=== PATIENT | male | born 1935 | race Caucasian/White ===

== ENCOUNTER → 2024-01-06 09:47 | Outpatient (REF) | payer MEDICARE, OTHER, SELFPAY ==
[2024-01-06 10:32] LABS: % Basophils 0.9 % (0-2); % Immature Granulocytes 0.4 % (0-0.5); % Lymphocytes 36.9 % (20.5-51.1); % Monocytes 8.5 % (1.7-9.3); % Neutrophils 48.3 % (42.2-75.2); Absolute Basophils 0.1 10^3/uL (0-0.2); Absolute Eosinophils 0.4 10^3/uL (0-0.7); Absolute Lymphocytes 2.8 10^3/uL (1.2-3.4); Absolute Monocytes 0.6 10^3/uL (0.1-0.6); Absolute Neutrophils 3.6 10^3/uL (1.4-6.5); Hematocrit 39.2 % (39.0-52.0); Hemoglobin 13.2 g/dL (13.0-18.0); Mean Corp Hgb Conc. 33.7 g/dL (33.0-37.0); Mean Corpuscular Hgb 31.5 pg (27.0-31.0); Mean Corpuscular Volume 93.6 fL (80.0-94.0); Mean Platelet Volume 10.3 fL (7.4-10.4); Nucleated Red Blood Cells % 0 % (-); Platelet Count 168 10^3/uL (130-400); Red Blood Cell Count 4.19 10^6/uL (4.70-6.10); Red Cell Dist. Width 14.2 % (11.5-14.5); White Blood Cell Count 7.5 10^3/uL (4.8-10.8)
[2024-01-06 10:44] LABS: ALT (SGPT) 20 U/L (0-50); AST (SGOT) 28 U/L (17-59); Albumin 4.3 g/dl (3.5-5.0); Alkaline Phosphatase 52 U/L (38-126); Blood Urea Nitrogen 31 mg/dl (9-20); Calcium 9.6 mg/dl (8.4-10.2); Carbon Dioxide 31 mmol/L (22-30); Chloride 103 mmol/L (98-107); Glucose 100 mg/dl (70-99); HDL Cholesterol 42 mg/dl; LDL Cholesterol, Calculated 69 mg/dl; Potassium 4.1 mmol/L (3.5-5.1); Sodium 140 mmol/L (135-145); Total Bilirubin 1.1 mg/dl (0.2-1.3); Total Cholesterol 130 mg/dl (50-199); Total Protein 7.2 g/dl (6.3-8.2); Triglyceride 98 mg/dl (10-149); Very Low Density Lipoprotein 19 mg/dl (0-30); eGFR 58.89
[2024-01-06 11:06] LABS: Erythrocyte Sed Rate 18 mm/hour (0-20)
== END ==
LOC: REG 09:47
PROVIDERS: ATTENDING PHYSICIAN Internal Medicine
DX: I10 Essential (primary) hypertension (principal); E78.5 Hyperlipidemia, unspecified; M54.14 Radiculopathy, thoracic region; I48.20 Chronic atrial fibrillation, unspecified; Z00.01 Encounter for general adult medical examination with abnormal findings; Z68.36 Body mass index [BMI] 36.0-36.9, adult
CPT/HCPCS: 36415; 80053; 80061; 85025; 85652

== ENCOUNTER → 2024-01-27 09:57 | Outpatient (REF) | payer MEDICARE, OTHER, SELFPAY ==
[2024-01-27 10:56] LABS: Urine Albumin Trace (Neg - Trace); Urine Bilirubin Negative (Negative); Urine Character Clear (Clear); Urine Color Yellow; Urine Glucose Negative (Negative); Urine Ketone Negative (Negative); Urine Leukocyte Negative (Negative); Urine Nitrite Negative (Negative); Urine Occult Blood Negative (Negative); Urine Urobilinogen Negative (Neg - 1+)
== END ==
LOC: REG 09:57
PROVIDERS: ATTENDING PHYSICIAN Internal Medicine
DX: I10 Essential (primary) hypertension (principal); I48.91 Unspecified atrial fibrillation; R35.1 Nocturia
CPT/HCPCS: 36415; 81003; 83735

== ENCOUNTER → 2024-02-23 14:28 | Outpatient (REF) | payer MEDICARE, OTHER, SELFPAY ==
[2024-02-23 15:51] LABS: Albumin 4.1 g/dl (3.5-5.0); Blood Urea Nitrogen 21 mg/dl (9-20); Calcium 9.5 mg/dl (8.4-10.2); Carbon Dioxide 32 mmol/L (22-30); Chloride 99 mmol/L (98-107); Glucose 91 mg/dl (70-99); Phosphorus 3.8 mg/dl (2.5-4.5); Potassium 3.2 mmol/L (3.5-5.1); Sodium 140 mmol/L (135-145); eGFR > 60.00
== END ==
LOC: REG 14:28
PROVIDERS: ATTENDING PHYSICIAN Internal Medicine Cardiovascular Disease; FAMILY PHYSICIAN Internal Medicine
DX: I10 Essential (primary) hypertension (principal)
CPT/HCPCS: 36415; 80069

== ENCOUNTER → 2024-03-14 10:26 | Outpatient (REF) | payer MEDICARE, OTHER, SELFPAY ==
[2024-03-14 11:55] LABS: Albumin 3.8 g/dl (3.5-5.0); Blood Urea Nitrogen 24 mg/dl (9-20); Calcium 9.4 mg/dl (8.4-10.2); Carbon Dioxide 28 mmol/L (22-30); Chloride 104 mmol/L (98-107); Glucose 104 mg/dl (70-99); Phosphorus 3.1 mg/dl (2.5-4.5); Potassium 3.7 mmol/L (3.5-5.1); Sodium 140 mmol/L (135-145); eGFR 58.89
== END ==
LOC: REG 10:26
PROVIDERS: ATTENDING PHYSICIAN Internal Medicine Cardiovascular Disease; FAMILY PHYSICIAN Internal Medicine
DX: I48.91 Unspecified atrial fibrillation (principal)
CPT/HCPCS: 36415; 80069

== ENCOUNTER → 2024-10-17 12:11 | Outpatient (REF) | payer MEDICARE, OTHER, SELFPAY ==
[2024-10-17 13:53] LABS: % Basophils 0.8 % (0-2); % Eosinophils 3.9 % (0-6); % Immature Granulocytes 0.3 % (0-0.5); % Lymphocytes 23.1 % (20.5-51.1); % Monocytes 11.7 % (1.7-9.3); % Neutrophils 60.2 % (42.2-75.2); Absolute Basophils 0.1 10^3/uL (0-0.2); Absolute Eosinophils 0.3 10^3/uL (0-0.7); Absolute Lymphocytes 1.5 10^3/uL (1.2-3.4); Absolute Monocytes 0.8 10^3/uL (0.1-0.6); Absolute Neutrophils 3.9 10^3/uL (1.4-6.5); Hematocrit 36.5 % (39.0-52.0); Hemoglobin 12.4 g/dL (13.0-18.0); Mean Corpuscular Hgb 31.4 pg (27.0-31.0); Mean Corpuscular Volume 92.4 fL (80.0-94.0); Mean Platelet Volume 10.2 fL (7.4-10.4); Nucleated Red Blood Cells % 0 % (-); Platelet Count 169 10^3/uL (130-400); Red Blood Cell Count 3.95 10^6/uL (4.70-6.10); White Blood Cell Count 6.5 10^3/uL (4.8-10.8)
[2024-10-17 15:52] LABS: ALT (SGPT) 21 U/L (0-50); AST (SGOT) 29 U/L (17-59); Albumin 4.3 g/dl (3.5-5.0); Alkaline Phosphatase 53 U/L (38-126); Blood Urea Nitrogen 21 mg/dl (9-20); Calcium 9.3 mg/dl (8.4-10.2); Carbon Dioxide 29 mmol/L (22-30); Chloride 100 mmol/L (98-107); Glucose 84 mg/dl (70-99); HDL Cholesterol 41 mg/dl; LDL Cholesterol, Calculated 64 mg/dl; Potassium 3.5 mmol/L (3.5-5.1); Sodium 140 mmol/L (135-145); Total Bilirubin 0.7 mg/dl (0.2-1.3); Total Cholesterol 123 mg/dl (50-199); Total Protein 6.9 g/dl (6.3-8.2); Triglyceride 91 mg/dl (10-149); Very Low Density Lipoprotein 18 mg/dl (0-30); eGFR 58.53
[2024-10-17 16:11] LABS: Phosphorus 3.4 mg/dl (2.5-4.5)
== END ==
LOC: REG 12:11
PROVIDERS: ATTENDING PHYSICIAN Internal Medicine; FAMILY PHYSICIAN Internal Medicine Cardiovascular Disease
DX: Z00.01 Encounter for general adult medical examination with abnormal findings (principal); I10 Essential (primary) hypertension; E78.5 Hyperlipidemia, unspecified; E66.9 Obesity, unspecified; I48.91 Unspecified atrial fibrillation; E87.6 Hypokalemia
CPT/HCPCS: 36415; 80053; 80061; 84100; 85025

== ENCOUNTER 2025-01-06 14:52 | Emergency (ER) | payer MEDICARE, OTHER, SELFPAY ==
[2025-01-06 14:57] VITALS: BP 160/78
--- NOTE | 2025-01-06 16:19 | ED.GENMED ---
History of Present Illness
General
Chief Complaint: Fall
Source: patient and family
Time Seen by Provider: 01/06/25 15:59
History of Present Illness
History of Present Illness:
89-year-old male presents to the emergency room for evaluation at the advice of an urgent care. Patient had a fall yesterday while walking outside. He states he stubbed his toe causing him to fall forward. He attempted to break his fall but he
did strike his head on the asphalt. He denies loss of consciousness. He denies any significant headache though he has some tenderness to the forehead region. He developed a large hematoma after the fall. The bruising has traveled over the past
24 hours down to his face. He has swelling about both eyes. Patient denies any neck pain. He has some abrasions to his left hand but denies any other injuries. Patient does take Eliquis for A-fib.
Past History
Past History
ED Past Medical History: GERD, HTN, Hypercholesterolemia and Other (Diverticulosis, degenerative joint disease, Rectal bleeding)
ED Past Surgical History: Appendectomy, Orthopedic (Bilateral knee surgeries) and Other (Duodenal ulceration with surgery)
Social History
Tobacco: Non-smoker
Alcohol: Occasional
Personal:
Living: with family
Employment: Retired
Family History
Family History: Other (Uncontributory)
Phy Exam
Physical Exam
Physical Exam:
General: Awake, Alert, Oriented X3. No acute distress.
Vitals: unremarkable
Head: Left frontal hematoma with bilateral periorbital ecchymosis and swelling.
Eyes: Pupils equal, EOMI
Throat: Airway intact, no exudates
Neck: Trachea midline, no tenderness to palpation
Lungs: Clear and equal b/l
Heart: Regular rate, no murmurs
Abd: Soft, Nontender, No pulsatile mass
Neuro: Cranial nerves intact, muscle strength equal bilaterally
Skin: Warm, dry, no rash
Extremities: pulses equal b/l, no edema. Small abrasions to his finger
Course
Orders/Labs/Results
Orders:
Orders
01/06/25 14:54
CT Head W/o Iv Contrast Urgent
Comment:
Reason For Exam: fall, frontal head strike, on eliquis
01/06/25 14:55
Facial Bones wo Contrast CT [CT Facial Bones W/o Iv Contras] Urgent
Comment: swelling and bruising to bilateral eyes
Reason For Exam: fall, left eye brow head strike.
01/06/25 14:56
CT Cervical Spine W/o Iv Contr Urgent
Comment:
Reason For Exam: fall, facial trauma
Vital Signs
Initial and Last Documented VS:
Initial Vital Signs
Temp Pulse Resp BP Pulse Ox
97.9 F 79 20 160/78 97
01/06/25 14:57 01/06/25 14:57 01/06/25 14:57 01/06/25 14:57 01/06/25 14:57
Last Documented Vital Signs
Temp Pulse Resp BP Pulse Ox
97.9 F 79 20 160/78 97
01/06/25 14:57 01/06/25 14:57 01/06/25 14:57 01/06/25 14:57 01/06/25 14:57
MDM/Problems Addressed
Differential Diagnosis Includes:
Subdural, cerebral contusion, facial bone fracture, cervical spine injury
MDM/Problems Addressed:
Patient presents for evaluation after suffering a fall yesterday. He has significant facial ecchymosis and swelling. Imaging shows no intracranial injury, facial bone fracture or cervical spine fracture. Patient appears to be at his baseline
mental status. He is on Eliquis for persistent A-fib. Given his been 24 hours I do not believe there is any benefit at this point of stopping anticoagulation particular because he is in chronic A-fib and I believe the risks of stopping it outweigh
the potential benefit. Recommend warm compresses. Expectant management.
*Radiology
Radiology exam reviewed: radiology read reviewed
*Pulse Oximetry
Patient hypoxic: no
*Critical Care Note
Total Time (30-74mins, 75-104mins- exclusive of procedures): Not Applicable
ED Attending Note
-
Portions of this chart may have been created with voice recognition software.� Occasional wrong word or��sound alike� substitutions may have occurred due to the inherent limitations of voice recognition software.
Discharge Plan
Departure
Patient Disposition: Home (Routine Discharge)
Date of Disposition: 01/06/25
Time of Disposition: 16:22
Patient with high blood pressure during this ER visit?: Yes
Condition: Good
Discharge Problem:
Cephalohematoma, Head injury, Abrasion of hand, left
Instructions: Head Injury in Adults (DC), Contusion (DC), Preventing falls in adults
Prescriptions:
No Action
enalapril maleate [Vasotec] 20 MG tablet
20 mg PO BID
Patient Comments:
'HAVE ONLY HAD ABOUT 5 DOSES SINCE BCK ON AFTER OUT OF HOSPITAL'
atorvastatin 20 MG tablet
20 mg PO DAILY
flaxseed oil 1,000 MG capsule
1 cap PO DAILY
prazosin [Minipress] 2 MG capsule
2 mg PO BID Qty: 0
coenzyme Q10 [Co Q-10] 10 MG capsule
1 tab PO DAILY
Patient Comments:
UNKNOWN EXACT DOSE
loratadine-pseudoephedrine [Allergy Relief D-24hr] 1 EACH tablet extended release 24 hr
1 tab PO DAILY
esomeprazole magnesium [Nexium] 40 MG capsule,delayed release(DR/EC)
40 mg PO DAILY
minoxidil 10 MG tablet
5 mg PO .QAM
triamterene-hydrochlorothiazid 1 EACH tablet
1 tab PO DAILY
fluticasone propionate 1 SPRAY spray,suspension
2 spray intranasal DAILY
icosapent ethyl [Vascepa] 0.5 GM capsule
1 mg PO DAILY
amoxicillin 500 MG capsule
500 mg PO BID
multivitamin with folic acid [Tab-A-Julianne] 1 TABLET tablet
1 tab PO DAILY
minoxidil 10 MG tablet
10 mg PO HS
amlodipine 5 MG tablet
5 mg PO DAILY
tramadol 50 MG tablet
50 mg PO Q6HPRN PRN (Reason: knee pain)
ascorbic acid (vitamin C) [Vitamin C] 500 MG tablet
1,000 mg PO DAILY PRN (Reason: as needed)
brimonidine 1 DROP drops
0 drp ophthalmic (eye) TID
zinc gluconate 50 MG tablet
50 mg PO DAILY PRN (Reason: as needed)
dextromethorphan-guaifenesin [Mucinex DM] 1 EACH tablet extended release 12 hr
1 ea PO Q12 PRN (Reason: as needed)
apixaban [Eliquis] 5 MG tablet
5 mg PO DAILY
Guaifenesin/Dm/Acetaminophen [Coricidin Hbp Max Jwmo-Aeb-Rtg] 1 EACH Capsule
1 ea PO DAILY PRN (Reason: as needed)
oxycodone-acetaminophen 5-325 mg tablet
1 tab PO Q4H PRN (Reason: pain) Qty: 14 0RF
oxycodone-acetaminophen 5-325 mg tablet
1 tab PO Q4H PRN (Reason: pain) Qty: 14 0RF
Activity Restrictions/Additional Instructions:
The CAT scan shows no injury to your brain, cervical spine or facial bones. You do have a large hematoma on the left forehead. This will move down your face and neck with gravity. There is no particular treatment for this except perhaps some warm
compresses. He can follow-up with your family doctor over the next week or so. Return to the emergency room if you start to have a severe headache or feel like something is changing.
Interventions
Interventions:
*Risk Screen - Suicide Last Done: 01/06/25 14:57
*General Assessment Last Done: 01/06/25 14:57
*Nursing Disposition Last Done: 01/06/25 16:30
ED-Musculoskeletal Assessment Last Done: 01/06/25 16:06
ED- Neurological Assessment Last Done: 01/06/25 16:06
Discharge Date and Time
Discharge Date/Time: 01/06/25 17:03
Print Language: AMHARIC
== END 2025-01-06 17:03 | disposition home or self-care (01) ==
LOC: EMR 14:52
PROVIDERS: EMERGENCY PHYSICIAN Emergency Medicine; FAMILY PHYSICIAN Internal Medicine
DX: S00.83XA Contusion of other part of head, initial encounter (principal); S00.12XA Contusion of left eyelid and periocular area, initial encounter; S00.11XA Contusion of right eyelid and periocular area, initial encounter; S60.512A Abrasion of left hand, initial encounter; W01.198A Fall on same level from slipping, tripping and stumbling with subsequent striking against other object, initial encounter; E78.00 Pure hypercholesterolemia, unspecified; I10 Essential (primary) hypertension; I48.91 Unspecified atrial fibrillation; Z79.01 Long term (current) use of anticoagulants
CPT/HCPCS: 99284; 70450; 70486; 72125

== ENCOUNTER → 2025-02-19 11:20 | Outpatient (REF) | payer MEDICARE, OTHER, SELFPAY ==
[2025-02-19 16:52] LABS: Urine Albumin 3+ (Neg - Trace); Urine Bilirubin Negative (Negative); Urine Character Clear (Clear); Urine Color Yellow; Urine Glucose Negative (Negative); Urine Ketone Negative (Negative); Urine Leukocyte Negative (Negative); Urine Nitrite Negative (Negative); Urine Occult Blood Negative (Negative); Urine Urobilinogen Negative (Neg - 1+)
[2025-02-19 16:56] LABS: % Basophils 0.9 % (0-2); % Eosinophils 3.3 % (0-6); % Immature Granulocytes 0.3 % (0-0.5); % Lymphocytes 34.4 % (20.5-51.1); % Monocytes 10.3 % (1.7-9.3); % Neutrophils 50.8 % (42.2-75.2); Absolute Basophils 0.1 10^3/uL (0-0.2); Absolute Eosinophils 0.2 10^3/uL (0-0.7); Absolute Monocytes 0.6 10^3/uL (0.1-0.6); Hematocrit 36.4 % (39.0-52.0); Hemoglobin 12.4 g/dL (13.0-18.0); Mean Corp Hgb Conc. 34.1 g/dL (33.0-37.0); Mean Corpuscular Hgb 31.7 pg (27.0-31.0); Mean Corpuscular Volume 93.1 fL (80.0-94.0); Mean Platelet Volume 10.5 fL (7.4-10.4); Nucleated Red Blood Cells % 0 % (-); Platelet Count 172 10^3/uL (130-400); Red Blood Cell Count 3.91 10^6/uL (4.70-6.10); Red Cell Dist. Width 14.6 % (11.5-14.5); White Blood Cell Count 5.8 10^3/uL (4.8-10.8)
[2025-02-19 16:59] LABS: Urine Mucus Few; Urine Squamous Cell 0-2 /LPF (Few)
[2025-02-19 17:00] LABS: Iron 55 ug/dl (49-181); Urine Bacteria Few (Negative); Urine Red Blood Cell 0-2 /HPF (0-2); Urine White Cell 0-2 /HPF (0-5)
[2025-02-19 17:11] LABS: Percent Saturation 18 % (20-50); Total Iron Binding Capacity 297 ug/dl (261-462)
[2025-02-22 03:04] LABS: PSA Total 1.1 ng/mL (0.0-4.0)
== END ==
LOC: HWRCS 11:20
PROVIDERS: ATTENDING PHYSICIAN Internal Medicine Cardiovascular Disease; FAMILY PHYSICIAN Internal Medicine
DX: I10 Essential (primary) hypertension (principal); I35.0 Nonrheumatic aortic (valve) stenosis; D64.9 Anemia, unspecified; N13.9 Obstructive and reflux uropathy, unspecified; R35.1 Nocturia; K62.5 Hemorrhage of anus and rectum
CPT/HCPCS: 36415; 81003; 81015; 83540; 83550; 84153; 84154; 85025; 93306

== ENCOUNTER → 2025-03-15 10:38 | Outpatient (REF) | payer MEDICARE, OTHER, SELFPAY | LOC: RAD 10:38 | PROVIDERS: ATTENDING PHYSICIAN Internal Medicine Cardiovascular Disease; FAMILY PHYSICIAN Internal Medicine | DX: I71.21 Aneurysm of the ascending aorta, without rupture (principal) | CPT/HCPCS: 71250 ==

== ENCOUNTER → 2025-07-18 09:36 | Outpatient (REF) | payer MEDICARE, OTHER, SELFPAY ==
[2025-07-18 10:35] LABS: Hematocrit 36.9 % (39.0-52.0); Hemoglobin 12.3 g/dL (13.0-18.0); Mean Corp Hgb Conc. 33.3 g/dL (33.0-37.0); Mean Corpuscular Volume 91.3 fL (80.0-94.0); Nucleated Red Blood Cells % 0 % (-); Platelet Count 146 10^3/uL (130-400); Red Cell Dist. Width 14.9 % (11.5-14.5)
[2025-07-18 10:55] LABS: Albumin 4.2 g/dl (3.5-5.0); Blood Urea Nitrogen 22 mg/dl (9-20); Calcium 9.4 mg/dl (8.4-10.2); Carbon Dioxide 34 mmol/L (22-30); Chloride 101 mmol/L (98-107); Glucose 104 mg/dl (70-99); HDL Cholesterol 42 mg/dl; Iron 96 ug/dl (49-181); LDL Cholesterol, Calculated 63 mg/dl; Potassium 3.5 mmol/L (3.5-5.1); Sodium 140 mmol/L (135-145); Very Low Density Lipoprotein 15 mg/dl (0-30); eGFR > 60.00
[2025-07-18 11:04] LABS: Total Iron Binding Capacity 305 ug/dl (261-462)
== END ==
LOC: REG 09:36
PROVIDERS: ATTENDING PHYSICIAN Nurse Practitioner Acute Care; OTHER PHYSICIAN Internal Medicine; OTHER PHYSICIAN Internal Medicine Cardiovascular Disease
DX: I48.91 Unspecified atrial fibrillation (principal); D64.9 Anemia, unspecified; E78.5 Hyperlipidemia, unspecified
CPT/HCPCS: 36415; 80061; 80069; 83540; 83550; 85025

== ENCOUNTER → 2025-09-18 08:48 | Outpatient (REF) | payer MEDICARE, OTHER, SELFPAY | LOC: HWRAD 08:48 | PROVIDERS: ATTENDING PHYSICIAN Internal Medicine Cardiovascular Disease; FAMILY PHYSICIAN Nurse Practitioner Acute Care | DX: I71.21 Aneurysm of the ascending aorta, without rupture (principal) | CPT/HCPCS: 71250 ==